=== PATIENT | female | born 1955 | race Caucasian/White ===

== ENCOUNTER 2016-12-11 20:38 | Emergency (ER) | payer SELFPAY ==
[2016-12-11 20:46] VITALS: O2SAT 100
[2016-12-11] MEDS ORDERED: Albuterol-Ipratrop 3 mg / 0.5 (3 ml) UD ONE (20:52)
[2016-12-11] MEDS ORDERED: DiphenhydrAMINE 50 mg/ml Inj IVP STA (21:30)
--- NOTE | 2016-12-11 21:34 | C.PDOC ---
History Of Present Illness Pt states she started feeling SOB after eating nuts. 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) Current Symptoms Are (Timing): Gone (after RN gave pt Duoneb) Possible Cause: Food Associated Symptoms: Dyspnea Home/EMS Treatment: None Severity: Moderate Additional History Per: Prior Records Past Medical History Reviewed: Historical Data, Nursing Documentation, Vital Signs Vital Signs: Last Vital Signs Temp 98 F 12/11/16 20:49 Pulse 67 12/11/16 20:49 Resp 20 12/11/16 21:00 BP 167/73 H 12/11/16 20:49 Pulse Ox 100 12/11/16 21:00 - Medical History PMH: No Chronic Diseases Family History: States: Unknown Family Hx - Social History Hx Tobacco Use: No Hx Alcohol Use: No Hx Substance Use: No - Immunization History Hx Tetanus Toxoid Vaccination: No Hx Influenza Vaccination: No Hx Pneumococcal Vaccination: No Review Of Systems Except As Marked, All Systems Reviewed And Found Negative. Constitutional: Negative for: Fever, Weakness ENT: Negative for: Mouth Swelling, Throat Pain, Throat Swelling Cardiovascular: Negative for: Chest Pain Respiratory: Negative for: Hemoptysis Gastrointestinal: Negative for: Nausea, Vomiting Musculoskeletal: Negative for: Neck Pain, Back Pain, Leg Pain Skin: Negative for: Rash Neurological: Negative for: Weakness, Numbness, Seizures, Altered Mental Status Physical Exam - Physical Exam Appears: Non-toxic, No Acute Distress Skin: Normal Color, Warm, Dry, No Rash Head: Atraumatic, Normacephalic Eye(s): bilateral: PERRL, EOMI Oral Mucosa: Moist, No Drooling, No Trismus Tongue: Normal Appearing Lips: Normal Appearing Throat: Normal Neck: Normal ROM, Supple Cardiovascular: Rhythm Regular Respiratory: Normal Breath Sounds (after Duoneb given by RN), No Accessory Muscle Use, No Stridor, No Wheezing Gastrointestinal/Abdominal: Soft, No Tenderness Back: No CVA Tenderness Extremity: Normal ROM, No Pedal Edema, No Calf Tenderness Neurological/Psych: Oriented x3, Normal Speech, Normal Motor, Normal Sensation ED Course And Treatment O2 Sat by Pulse Oximetry: 100 Pulse Ox Interpretation: Normal Progress Note: Pt is currently asymptomatic. Reassessment Condition: Improved Disposition Counseled Patient/Family Regarding: Diagnosis, Need For Followup - Disposition Referrals: [facility] [Outside] Disposition: HOME/ ROUTINE Disposition Time: 21:36 Condition: IMPROVED Additional Instructions: Follow up in the clinic for further evaluation and treatment. Return to the ER if you develop shortness of breath, throat swelling, worsening of symptoms or if you have any other concerns. Prescriptions: DiphenhydrAMINE [Benadryl] 25 mg PO Q4 PRN #30 cap PRN Reason: Allergy Symptoms Instructions: Food Allergy (ED) Print Language: SAMOAN - Clinical Impression Clinical Impression: Allergic reaction to food
[2016-12-11] MEDS ORDERED: DiphenhydrAMINE 50 mg/ml Inj ONE (21:40)
[2016-12-11 21:58] VITALS: BP 130/80; PULSE 72; RESP 18; TEMP 98.5
== END 2016-12-11 21:57 | disposition home or self-care (01) ==
LOC: C.ER 20:38
DX: T78.1XXA Other adverse food reactions, not elsewhere classified, initial encounter (principal); X58.XXXA Exposure to other specified factors, initial encounter
CPT/HCPCS: 96374; 96375; 99285; J1200

== ENCOUNTER 2017-01-30 22:03 | Emergency (ER) | payer SELFPAY ==
[2017-01-30 22:07] VITALS: TEMP 98.2
[2017-01-30 22:21] VITALS: O2SAT 99
[2017-01-30 22:22] VITALS: BP 137/77; RESP 17
--- NOTE | 2017-01-30 22:47 | C.PDOC ---
History Of Present Illness A 61 y/o female c/o feeling SOB today. Reports having a couple of beers and eating where her friend was cooking shrimp and smelled the food and did not like the smell. Patient is allergic to seafood which she said caused her SOB. Denies throat swelling, fever, chills, chest pain, palpitations, diaphoresis, light headedness, or rash. Time Seen by Provider: 01/30/17 22:47 Chief Complaint (Nursing): Shortness Of Breath History Per: Patient History/Exam Limitations: no limitations Onset/Duration Of Symptoms: Hrs Current Symptoms Are (Timing): Still Present Initiating Event: Possible Allergic Reaction Severity: Mild Associated Symptoms: denies: Sweating, Chest Pain, Heart Racing, Leg/Calf Pain Recent travel outside of the [place]: No Additional History Per: Patient Past Medical History Reviewed: Historical Data, Nursing Documentation, Vital Signs Vital Signs: Last Vital Signs Temp 98.2 F 01/30/17 22:05 Pulse 78 01/30/17 22:20 Resp 17 01/30/17 22:20 BP 137/77 01/30/17 22:20 Pulse Ox 99 01/30/17 23:11 Family History: States: Unknown Family Hx - Social History Hx Tobacco Use: No Hx Alcohol Use: No Hx Substance Use: No - Immunization History Hx Tetanus Toxoid Vaccination: No Hx Influenza Vaccination: No Hx Pneumococcal Vaccination: No Review Of Systems Constitutional: Negative for: Fever, Chills, Sweats ENT: Negative for: Throat Swelling Cardiovascular: Negative for: Chest Pain, Palpitations, Light Headedness Respiratory: Positive for: Shortness of Breath Gastrointestinal: Negative for: Abdominal Pain Skin: Negative for: Rash Neurological: Negative for: Headache Psych: Negative for: Anxiety Physical Exam - Physical Exam Appears: Non-toxic, No Acute Distress Skin: Warm, Dry, No Rash Head: Normacephalic Eye(s): bilateral: Normal Inspection Nose: No Flaring Oral Mucosa: Moist Tongue: No Swelling Lips: No Swelling Throat: No Erythema, No Exudate, No Drooling Neck: Trachea Midline, Supple Cardiovascular: Rhythm Regular Respiratory: No Rales, No Rhonchi, No Wheezing Gastrointestinal/Abdominal: Soft, No Tenderness Back: No CVA Tenderness Extremity: Bilateral: Atraumatic, No Pedal Edema, Normal Color And Temperature, Normal ROM Pulses: Left Dorsalis Pedis: Normal, Right Dorsalis Pedis: Normal Neurological/Psych: Oriented x3, Normal Speech, Normal Cognition Gait: Steady ED Course And Treatment O2 Sat by Pulse Oximetry: 99 (RA) Pulse Ox Interpretation: Normal Reevaluation Time: 00:18 Reassessment Condition: Improved Medical Decision Making Medical Decision Making: Upon provider reevaluation patient is feeling better, is medically stable, and requires no further treatment in the ED at this time. Patient will be discharged home with Rx for prednisone, epipen . Counseling was provided and all questions were answered regarding diagnosis and need for follow up with the referred clinic. There is agreement to discharge plan. Return if symptoms persist or worsen. Disposition Counseled Patient/Family Regarding: Studies Performed, Diagnosis, Need For Followup - Disposition Referrals: [facility] [Outside] Disposition: HOME/ ROUTINE Disposition Time: 22:47 Condition: FAIR Additional Instructions: Please return if symptoms recur. Please also use benadryl, pepcid and claritin Prescriptions: Epinephrine [Epipen] 0.3 mg IJ ONCE PRN #1 auto.[email or web address] PRN Reason: Anaphylaxis Prednisone [Deltasone] 20 mg PO DAILY #5 tablet Instructions: General Allergic Reaction (ED) Forms: [employer] (Latvian) Print Language: SLOVAK - Clinical Impression Clinical Impression: Allergic reaction to food - Scribe Statement The provider has reviewed the documentation as recorded by the Michaeliblolly brandt All medical record entries made by the Michaeliblolly were at my direction and personally dictated by me. I have reviewed the chart and agree that the record accurately reflects my personal performance of the history, physical exam, medical decision making, and the department course for this patient. I have also personally directed, reviewed, and agree with the discharge instructions and disposition.
[2017-01-30] MEDS ORDERED: DiphenhydrAMINE 50 mg/ml Inj IVP STA (22:51)
[2017-01-30] MEDS ORDERED: Sodium Chloride 0.9% 1,000 ML IV ONE (22:54)
[2017-01-30] MEDS ORDERED: DiphenhydrAMINE 50 mg/ml Inj ONE (23:08)
[2017-01-30] MEDS ORDERED: Sodium Chloride 0.9% 1,000 ML ONE (23:08)
[2017-01-31 00:25] VITALS: PULSE 82
== END 2017-01-31 00:28 | disposition home or self-care (01) ==
LOC: C.ER 22:03
DX: T78.1XXA Other adverse food reactions, not elsewhere classified, initial encounter (principal)
CPT/HCPCS: 96361; 96374; 96375; 99285; J1200; J2930; J7040

== ENCOUNTER 2017-03-10 08:56 | Emergency (ER) | payer OTHER, SELFPAY ==
[2017-03-10 09:00] VITALS: RESP 18
--- NOTE | 2017-03-10 09:13 | C.PDOC ---
History Of Present Illness Patient is a 61 y/o female who presents to the ED with a friend with a complaint of pain in her left thumb after closing it in a car door approximately 7 days ago. 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 The friend notes the patient is right handed. No other complaints at this time. Time Seen by Provider: 03/10/17 09:06 Chief Complaint (Nursing): Finger,Hand,&Wrist History Per: Patient, Other (friend) History/Exam Limitations: no limitations Onset/Duration Of Symptoms: Days (incident occured approximately 7 days ago) Current Symptoms Are (Timing): Still Present Quality: "Pain" Recent travel outside of the [place]: No Past Medical History Reviewed: Historical Data, Nursing Documentation, Vital Signs Vital Signs: Last Vital Signs Temp 97.8 F 03/10/17 08:58 Pulse 61 03/10/17 08:58 Resp 18 03/10/17 08:58 BP 124/81 03/10/17 08:58 Pulse Ox 96 03/10/17 09:35 - Medical History PMH: No Chronic Diseases Surgical History: No Surg Hx Family History: States: Unknown Family Hx - Social History Hx Tobacco Use: No Hx Alcohol Use: No Hx Substance Use: No - Immunization History Hx Tetanus Toxoid Vaccination: No Hx Influenza Vaccination: No Hx Pneumococcal Vaccination: No Review Of Systems Except As Marked, All Systems Reviewed And Found Negative. Musculoskeletal: Positive for: Hand Pain (left thumb pain ) Physical Exam - Physical Exam Appears: Well, Non-toxic, No Acute Distress Skin: Normal Color, Warm, Dry Head: Atraumatic, Normacephalic Oral Mucosa: Moist Chest: Symmetrical Cardiovascular: Rhythm Regular, No Murmur Respiratory: Normal Breath Sounds, No Rales, No Rhonchi, No Wheezing Extremity: Swelling (distal swelling of left thumb), Other (left thumb shows no fluctuance, paranychia, erythema, subungual hematoma, or deformities. Cuticle intact. ) Neurological/Psych: Oriented x3, Normal Speech, Normal Cognition ED Course And Treatment O2 Sat by Pulse Oximetry: 96 (room air) Pulse Ox Interpretation: Normal - Other Rad L THUMB X-Ray: Interpreted by Me (NEG) Progress Note: Tylenol and Motrin administered; XR Left Hand ordered. Finger splint applied by Dr. White without difficulty. Disposition Counseled Patient/Family Regarding: Studies Performed, Diagnosis, Need For Followup - Disposition Referrals: [facility] [Outside] [facility] [Outside] Disposition: HOME/ ROUTINE Disposition Time: 09:49 Condition: GOOD Instructions: Sharon Finger (ED) Forms: [employer] (Albanian), Work Excuse Print Language: NAURUAN - Clinical Impression Clinical Impression: Thumb sprain - Scribe Statement The provider has reviewed the documentation as recorded by the Scribe Hina Doyle All medical record entries made by the Scribe were at my direction and personally dictated by me. I have reviewed the chart and agree that the record accurately reflects my personal performance of the history, physical exam, medical decision making, and the department course for this patient. I have also personally directed, reviewed, and agree with the discharge instructions and disposition. Orthopedic Care Application Of:: Finger Splint
[2017-03-10 10:24] VITALS: BP 121/79; PULSE 60; TEMP 97.9; O2SAT 100
--- NOTE | 2017-03-10 11:31 | RAD ---
Left thumb three views History: Trauma. Comparison: None available. Findings: Punctate ossific density seen distal to the tuft of the 1st distal phalanx which may represent a small avulsion injury. Mild productive change at the ulnar aspect of the 1st distal phalanx at its base. Well corticated ossific density seen at the volar base of the 1st distal phalanx suggestive for an accessory ossicle. Additional well corticated ossific density seen at the volar aspect of the 1st proximal phalanx also suggestive for accessory ossicles. Soft tissue swelling noted at the level of the 1st distal phalanx. Narrowing of the 1st MCP joint space with subchondral sclerosis. Narrowing at the 1st carpometacarpal joint space with some bony spurring. Degenerative changes with narrowing of the 2nd through 4th PIP and DIP joint spaces. Impression: Punctate ossific density seen distal to the tuft of the 1st distal phalanx which may represent a small avulsion injury. Additional findings as above. If pain persists, consider MRI.
== END 2017-03-10 10:15 | disposition home or self-care (01) ==
LOC: C.ER 08:56
DX: S63.602A Unspecified sprain of left thumb, initial encounter (principal); W22.8XXA Striking against or struck by other objects, initial encounter